=== PATIENT | female | born 1985 | race Caucasian/White ===

== ENCOUNTER → 2022-12-14 | Outpatient (CLI) | LOC: M SOG 10:51 | PROVIDERS: ATTEND Physician Assistant | DX: M25.531 Pain in right wrist (principal) ==

== ENCOUNTER 2023-03-26 06:08 | Day surgery (SDC) | payer OTHER ==
[~2023-03-26] VITALS: Ht 160 cm; Wt 69.4 kg
[~2023-03-26 06:08] MED LIST: BACL10TA2 PO; BUSP15TA47 PO; GABA-282 PO; TRAZ-257 PO
[2023-03-26] MEDS ORDERED: MELA10CA6 PO (06:45)
[2023-03-26] MEDS ORDERED: LR 1,000 ML IV SCH ×2 (06:45→08:50)
[2023-03-26] MEDS ORDERED: propofoL 200 MG/20 ML VIAL As Ordered ONE (07:07)
[2023-03-26] MEDS ORDERED: ONDANSETRON 4MG 2ML VIAL As Ordered ONE (07:07)
[2023-03-26] MEDS ORDERED: LIDOCAINE 2% 100MG/5ML SDV (FOR ANES.) As Ordered ONE (07:07)
[2023-03-26] MEDS ORDERED: KETOROLAC 60MG 2ML VIAL As Ordered ONE (07:07)
[2023-03-26] MEDS ORDERED: MIDAZOLAM INJ 2MG/2ML VIAL As Ordered ONE (07:07)
[2023-03-26] MEDS ORDERED: fentaNYL 100 MCG/2 ML INJECTION As Ordered ONE ×2 (07:07→08:56)
[2023-03-26] MEDS ORDERED: ceFAZolin SOD 2 GM in IV 1 EA IV ONE (07:25)
[2023-03-26] MEDS ORDERED: oxyCODONE 5MG TAB PO PRN (08:50)
[2023-03-26] MEDS ORDERED: ONDANSETRON 4MG 2ML VIAL IV PRN (08:50)
[2023-03-26] MEDS: fentaNYL 100 MCG/2 ML INJECTION IV PRN ×2 (09:12→09:18)
[2023-03-26] MEDS ORDERED: PERC5TAB12 PO (09:58)
[2023-03-26 10:16] VITALS: BP 112/60; TEMP 97.8; O2SAT 99
== END 2023-03-26 10:37 | disposition home or self-care (01) ==
LOC: M SDC 06:08
PROVIDERS: ATTEND Orthopaedic Surgery Hand Surgery
DX: G56.01 Carpal tunnel syndrome, right upper limb (principal); M67.431 Ganglion, right wrist; F41.9 Anxiety disorder, unspecified; F17.210 Nicotine dependence, cigarettes, uncomplicated; G43.909 Migraine, unspecified, not intractable, without status migrainosus; Z79.899 Other long term (current) drug therapy; Z91.030 Bee allergy status
CPT/HCPCS: 25111; 29848; 81025; 88304; J0665; J0690; J1100; J1885; J2250; J2405; J3010

== ENCOUNTER → 2023-10-20 | Outpatient (CLI) | payer OTHER ==
[~2023-10-20] MED LIST changes: +MELA10CA6 PO; +PERC5TAB12 PO
== END ==
LOC: M PLAIMG 07:03
PROVIDERS: ATTEND Physician Assistant
DX: M25.531 Pain in right wrist (principal); M25.631 Stiffness of right wrist, not elsewhere classified; M25.431 Effusion, right wrist

== ENCOUNTER → 2024-04-20 | Outpatient (CLI) | payer OTHER ==
[2024-04-20 15:46] LABS: BASO % 0.2 % (0.0-1.0); EOS % 0.3 % (0.0-3.0); HEMATOCRIT 43.2 % (36.0-47.0); LYMPH # 1.5 10^3/uL (1.5-5.0); LYMPH % 13.2 % (24.0-44.0); MEAN CORPUSCULAR HEMOGLOBIN 30.9 pg (27.0-33.0); MEAN CORPUSCULAR HGB CONC 34.7 g/dl (32.0-36.5); MEAN CORPUSCULAR VOLUME 89.1 fl (80.0-96.0); MONO # 0.6 10^3/uL (0.0-0.8); MONO % 4.9 % (2.0-8.0); NEUTROPHILS # 9.3 10^3/uL (1.5-8.5); PLATELET COUNT, AUTOMATED 225 10^3/uL (150-450); RED BLOOD COUNT 4.85 10^6/uL (4.00-5.40); WHITE BLOOD COUNT 11.5 10^3/uL (4.0-10.0)
[2024-04-20 15:49] LABS: ALBUMIN 4.3 G/DL (3.2-5.2); ALKALINE PHOSPHATASE 75 U/L (46-116); ALT/SGPT 17 U/L (7.0-40); AST/SGOT 10 U/L (<34); BILIRUBIN,TOTAL 0.4 MG/DL (0.3-1.2); BLOOD UREA NITROGEN 7 MG/DL (9-23); CALCIUM LEVEL 9.8 MG/DL (8.5-10.1); CARBON DIOXIDE LEVEL 24 MMOL/L (20-31); CHLORIDE LEVEL 110 MMOL/L (98-107); CREATININE FOR GFR 0.74 MG/DL (0.55-1.30); GLOMERULAR FILTRATION RATE > 60.0 (>60); GLUCOSE, FASTING 105 MG/DL (60-100); POTASSIUM SERUM 4.1 MMOL/L (3.5-5.1); RHEUMATOID FACTOR QUANT 9.1 IU/ML (<14); SODIUM LEVEL 138 MMOL/L (136-145); TOTAL PROTEIN 7.3 G/DL (5.7-8.2)
[2024-04-20 15:53] LABS: ERYTHROCYTE SEDIMENTATION RATE 58 mm/hr (0-20)
== END ==
LOC: M PLALAB 13:39
PROVIDERS: ATTEND Psychiatry & Neurology Neurology
DX: R51.9 Headache, unspecified (principal)

== ENCOUNTER → 2024-04-25 | Outpatient (CLI) | payer OTHER ==
[~2024-04-25] MED LIST changes: +GABA-1172 PO; -GABA-282 PO; +ISOVUE-300 61% 100ML VIAL As Ordered ONE; +LIDOCAINE 1% MDV 20ML VIAL As Ordered ONE; +PROHANCE 279.3MG/ML 5ML VIAL As Ordered ONE
== END ==
LOC: M RAD 06:23
PROVIDERS: ATTEND Orthopaedic Surgery Hand Surgery
DX: M25.531 Pain in right wrist (principal)
CPT/HCPCS: 25246; 73223; 77002; A9576; Q9967

== ENCOUNTER → 2024-08-14 | Outpatient (REF) ==
[~2024-08-14] MED LIST changes: -ISOVUE-300 61% 100ML VIAL As Ordered ONE; -LIDOCAINE 1% MDV 20ML VIAL As Ordered ONE; -PROHANCE 279.3MG/ML 5ML VIAL As Ordered ONE
== END ==
LOC: M PLAIMG 08:09
PROVIDERS: ATTEND Internal Medicine
DX: M54.50 Low back pain, unspecified (principal); M41.86 Other forms of scoliosis, lumbar region